=== PATIENT | male | born 1995 | race Caucasian/White ===

== ENCOUNTER 2017-10-01 18:08 | Emergency (ER) | payer BC ==
[~2017-10-01] VITALS: Ht 180.3 cm; Wt 52.6 kg
[2017-10-01 18:50] VITALS: BP 132/90
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
[2017-10-01] MEDS ORDERED: ACETAMINOPHEN-1 EAC1 ORAL (20:30)
[2017-10-01 20:39] VITALS: BP 124/82
[2017-10-01 20:40] VITALS: BP 132/90
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
== END 2017-10-01 20:40 | disposition home or self-care (01) ==
LOC: EMR 18:30
DX: H73.892 Other specified disorders of tympanic membrane, left ear (principal); K08.89 Other specified disorders of teeth and supporting structures; R68.84 Jaw pain; Y04.2XXA Assault by strike against or bumped into by another person, initial encounter; Y92.9 Unspecified place or not applicable; R42 Dizziness and giddiness
CPT/HCPCS: 70450; 99284